=== PATIENT | female | born 1975 | race Two or more races ===

== ENCOUNTER 2024-11-18 14:08 | Emergency (ER) | payer MEDICAID ==
[~2024-11-18] VITALS: Ht 165.1 cm; Wt 77.0 kg
[2024-11-18 14:53] LABS: BASOPHILS % (AUTO) 0.4 % (0-1); EOSINOPHILS % (AUTO) 0.4 % (0-6); HEMATOCRIT 34.6 % (35.0-45.0); LYMPHOCYTES # (AUTO) 1.6 X10'3 (1.1-4.8); MEAN CORPUSCULAR HEMOGLOBIN 23.5 PG (27.0-31.0); MEAN CORPUSCULAR HGB CONC 31.8 g/dL (33.0-36.5); MEAN PLATELET VOLUME 7.4 FL (7.4-10.4); MONOCYTES % (AUTO) 7.9 % (2-12); NEUTROPHILS # (AUTO) 9.6 X10'3 (1.8-7.7); NEUTROPHILS % (AUTO) 78.3 % (42-75); PLATELET COUNT 310 X10'3 (140-440); RED BLOOD COUNT 4.67 X10'6 (4.20-5.60); RED CELL DISTRIBUTION WIDTH 17.7 % (11.5-14.5); WHITE BLOOD COUNT 12.3 X10'3 (4.5-11.0)
[2024-11-18 15:27] LABS: ALANINE AMINOTRANSFERASE 109 U/L (12-78); ALBUMIN 3.1 G/DL (3.4-5.0); ALBUMIN/GLOBULIN RATIO 0.9 (1.1-1.5); ALKALINE PHOSPHATASE 83 IU/L (46-116); ANION GAP 8 (8-16); ASPARTATE AMINO TRANSFERASE 204 U/L (10-37); BILIRUBIN,TOTAL 0.3 MG/DL (0.1-1.0); BLOOD UREA NITROGEN 9 MG/DL (7-18); BUN/CREATININE RATIO 11.4 (10.0-20.0); CALCIUM 8.4 MG/DL (8.5-10.1); CHLORIDE 104 MMOL/L (99-107); CREATININE 0.79 MG/DL (0.40-0.90); GLUCOSE 163 MG/DL (70-104); LIPASE 28 U/L (16-77); POTASSIUM 3.8 MMOL/L (3.5-5.1); SODIUM 138 MMOL/L (135-145); TOTAL CARBON DIOXIDE 25.9 MMOL/L (24-32); TOTAL PROTEIN 6.7 G/DL (6.4-8.2); eCRCL 79 ML/MIN; eGFR 78 ML/MIN
[2024-11-18] MEDS ORDERED: ketorolac trometh 30MG/ML vial 30 MG/ML VIAL IV ONE (18:35)
[2024-11-18] MEDS ORDERED: iohexol 300mg/ml 100ml inj. ONE (18:43)
[2024-11-18] MEDS: normal saline 1000ml 1,000 ML IV ONE (18:47)
[2024-11-18 18:48] LABS: BILIRUBIN,URINE NEGATIVE (Neg); CLARITY,URINE CLEAR (Clear); COLOR,URINE YELLOW (Yellow); GLUCOSE, URINE NEGATIVE (Neg); KETONES,URINE 15 mg/dl (Neg); LEUKOCYTE ESTERASE ,URINE SMALL (Neg); NITRITES, URINE NEGATIVE (Neg); OCCULT BLOOD,URINE NEGATIVE (Neg); PROTEIN,URINE NEGATIVE (Neg); URINE HCG NEGATIVE (NEG); UROBILINOGEN,URINE 0.2 E.U/dL (0.2-1.0)
[2024-11-18 18:53] LABS: UA COLLECTION TYPE CLN CATCH MIDSTREAM
[2024-11-18 18:54] LABS: BACTERIA,URINE 1+ /HPF (Neg); RBC,URINE 0-2 /HPF (0-2); SQUAMOUS EPITHELIAL CELL,UR MODERATE /LPF (FEW)
[2024-11-18] MEDS: ketorolac trometh 15mg/ml vial 15 MG/ML ML IV ONE (19:01)
[2024-11-18] MEDS: CefTRIAXone/D5W-Rocephin 1gm 50 ML IV ONE (22:47)
[2024-11-18] MEDS ORDERED: CIPR-546 PO (23:57)
[2024-11-18] MEDS ORDERED: ONDA-243 PO (23:58)
[2024-11-19 00:16] VITALS: BP 98/52; PULSE 78; RESP 16; TEMP 98.2; O2SAT 98
== END 2024-11-19 00:23 | disposition home or self-care (01) ==
LOC: ER 14:09
DX: N10 Acute pyelonephritis (principal); R11.2 Nausea with vomiting, unspecified; Z20.822 Contact with and (suspected) exposure to COVID-19
CPT/HCPCS: 36415; 71045; 74177; 76700; 80053; 80074; 81001; 81025; 83690; 85025; 87088; 87186; 87502; 87503; 87811; 96361; 96365; 96375; 99285; J0696; J1885; J7030; Q9967; 87077

== ENCOUNTER 2025-03-12 10:32 | Inpatient (IN) | payer OTHER ==
[2025-03-11 19:35] VITALS: BP 132/86; PULSE 80; RESP 14; TEMP 97.7; O2SAT 98
[~2025-03-12] VITALS: Ht 167.6 cm; Wt 66.0 kg
[~2025-03-12 10:32] MED LIST: ONDA-243 PO
--- NOTE | 2025-03-12 11:28 | RADIOLOGY REPORT ---
[facility] EXAM[facility]: DI HIREN RIBS WITH PA CHEST INDICATION: rib pain, worse on right COMPARISON: DI CHEST,SINGLE VIEW on DOS: 11/18/24 TECHNIQUE: Frontal view of the chest and multiple views of the bilateral ribs were performed. FINDINGS: No pneumothorax or pulmonary edema. There is mild left lung base atelectasis. The heart is not enlarg ed. No displaced fractures are identified about the bony thorax. There is fecal retention in the part ially visualized colon. IMPRESSION: 1. Mild left basilar atelectasis. The lungs are otherwise clear. 2. No evidence of rib fracture.
[2025-03-12] MEDS ORDERED: HYDROcodone/acetaminophen 5mg/325mg tablet PO STA (11:32)
[2025-03-12] MEDS: ketorolac trometh 30MG/ML vial 30 MG/ML VIAL IV ONE (11:45)
[2025-03-12] MEDS ORDERED: IBUP-1986 PO (12:59)
[2025-03-12] MEDS ORDERED: HYDR-3973 PO (12:59)
[2025-03-12] MEDS ORDERED: ACET-3174 PO (12:59)
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
[2025-03-12 14:00] LABS: MEAN PLATELET VOLUME 7.5 FL (7.4-10.4); RED CELL DISTRIBUTION WIDTH 17.7 % (11.5-14.5)
[2025-03-12 14:15] LABS: CREATININE 0.71 MG/DL (0.40-0.90); TOTAL CARBON DIOXIDE 24.7 MMOL/L (24-32); eCRCL 92 ML/MIN; eGFR 88 ML/MIN
[2025-03-12] MEDS ORDERED: iohexol 300mg/ml 100ml inj. ONE (14:22)
--- NOTE | 2025-03-12 15:07 | RADIOLOGY REPORT ---
Exam: CT CT ABDOMEN PELVIS W/ IV CONTRAST History: RUQ abd pain Comparison Study: CT CT ABDOMEN PELVIS W/ IV CONTRAST on DOS: 11/18/24, US ULTRASOUND OF ABDOMEN on DO S: 11/18/24 TECHNIQUE: A digital office supervisor image was obtained. During the uneventful, intravenous administration of c ontrast material, multislice data acquisition was obtained through the abdomen and pelvis. The data s et was subsequently reconstructed into axial images. Images were reviewed on a work station using a c ombination of axial and multiplanar using a variety of window levels and settings. Radiation Dose Information: CT Dose: CTDI volume is 25 mGy. Dose-length product is 250 mGy*cm FINDINGS: Lung Bases: No acute or significant lung base finding. Normal heart size. No pleural or pericardial effusion. Liver: The liver is normal in size. No focal lesions. Normal hepatic vascular enhancement. Gallbladder and Biliary Tree: Distended gallbladder. Spleen: Unremarkable Pancreas: The pancreas is normal in appearance without focal lesions or abnormal enhancement. Adrenal Glands: Unremarkable Kidneys: Moderate right hydroureteronephrosis. No obstructing calculi is noted. This appears similar to prior study dated 11/18/2024. Bladder: Distended bladder. Bowel: The stomach is grossly normal in appearance. Small bowel and colon are normal in caliber and d istribution. Appendix is unremarkable. Ascites: Absent Lymphadenopathy: No mesenteric, retroperitoneal or periportal lymphadenopathy. Abdominal Wall and Mesentery: Unremarkable. Vasculature: The visualized abdominal aorta is normal in size and caliber. Abdominal and pelvic vess els demonstrate normal enhancement. Pelvic Organs: Unremarkable Musculoskeletal: No aggressive focal bony lesions, acute fractures or dislocation. Soft tissues: Unremarkable. IMPRESSION: Moderate right hydroureteronephrosis. No obstructing calculi is noted. This appears similar to prior study dated 11/18/2024. Distended bladder. Distended gallbladder. Right upper quadrant ultrasound is recommended. All CT scans at this medical facility are performed using dose modulation techniques as appropriate t o a performed exam including the following: Automated exposure control was utilized; adjustment of th e MA and/or KV according to patient size; and use of iterative reconstruction technique.
--- NOTE | 2025-03-12 16:05 | RADIOLOGY REPORT ---
CLINICAL HISTORY: distended GB. and RUQ abd pain. TECHNIQUE: Transabdominal sonogram was performed of the right upper quadrant. COMPARISON: CT CT ABDOMEN PELVIS W/ IV CONTRAST on DOS: 03/12/25, CT CT ABDOMEN PELVIS W/ IV CONTRAST on DOS: 11/18/24, US ULTRASOUND OF ABDOMEN on DOS: 11/18/24 FINDINGS: The liver is heterogeneous in echogenicity. There is a 1.3 cm cyst. No intrahepatic biliary ductal d ilatation is present. The liver measures 15 cm. The gallbladder is normal with no evidence for stones or wall thickening. The common bile duct is normal in caliber, measuring 3 mm. The pancreas is not seen. The right kidney is normal in echogenicity and measures 9.8 cm in length. There is no evidence for hy dronephrosis or calculi. IMPRESSION: NO SIGNIFICANT SONOGRAPHIC ABNORMALITY OF THE IMAGED RIGHT UPPER QUADRANT.
[2025-03-12] MEDS ORDERED: magnesium sulf-water 4G/100mL 100 ML IV PRN (17:15)
[2025-03-12] MEDS ORDERED: HYDROmorphone inj. 0.5 MG/0.5 ML DISP.SYRIN IV PRN (17:15)
[2025-03-12] MEDS ORDERED: mag hydrox/Alum hydrox/simeth 30ml oral suspension PO PRN (17:15)
[2025-03-12] MEDS ORDERED: magnesium sulf-water 2g/50mL 50 ML IV PRN (17:15)
[2025-03-12] MEDS ORDERED: potassium Cl 20 mEq SR tablet PO PRN ×2 (17:15)
[2025-03-12] MEDS ORDERED: HYDROcodone/acetaminophen 5mg/325mg tablet PO PRN (17:15)
[2025-03-12] MEDS ORDERED: potassium Cl 40MEQ/1/2NS 520ml 520 ML IV PRN (17:15)
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
[2025-03-12] MEDS: K and/or MAG REPLACEMENT MC SCH (20:00)
[2025-03-12] MEDS: normal saline 1000ml 1,000 ML IV SCH (20:00)
[2025-03-12] MEDS: ondansetron/PF 4mg/2ml inj IV PRN (20:08)
[2025-03-12] MEDS: docusate sod 100mg capsule PO SCH (21:20)
[2025-03-12 22:00] VITALS: BP 102/65; PULSE 62; RESP 13; TEMP 96.9; O2SAT 96
[2025-03-13 04:36] LABS: MEAN PLATELET VOLUME 7.2 FL (7.4-10.4); RED CELL DISTRIBUTION WIDTH 18.2 % (11.5-14.5)
[2025-03-13 04:54] LABS: CREATININE 0.87 MG/DL (0.40-0.90); TOTAL CARBON DIOXIDE 26.8 MMOL/L (24-32); eCRCL 75 ML/MIN; eGFR 70 ML/MIN
[2025-03-13 06:00] VITALS: BP 109/61; PULSE 57; RESP 12; TEMP 96.8; O2SAT 95
[2025-03-13] MEDS: HYDROcodone/acetaminophen 10/325mg tab PO PRN (08:52)
[2025-03-13 10:00] VITALS: BP 111/63; PULSE 64; RESP 19; TEMP 97.6; O2SAT 98
--- NOTE | 2025-03-13 11:19 | RADIOLOGY REPORT ---
Procedure: CT CT CHEST Reason for study/Clinical History: right chest pain, rib pain Comparison Study: None TECHNIQUE: Multidetector CT of the chest was performed from the lung apices to the upper abdomen with out the use of intravenous contract. Axial, coronal and sagittal multiplanar reformats were performed . Radiation Dose Information: CT Dose: CTDI volume is 15 mGy. Dose-length product is 440.8 mGy*cm The dose indicators for CT are the volume Computed Tomography (CT) Dose Index (CTDIvol) and the Dose Length Product (DLP), and are measured in units of mGy and mGy-cm, respectively. These indicators are not patient dose, but values generated from the CT scanner acquisition factors. The report includes radiation exposure data for exposures received during this examination. FINDINGS: Lower neck: Unremarkable. Lungs: Dependent subsegmental atelectasis. Heart/Vascular Structures: Normal heart size. No pericardial effusion. Lymph Nodes: No adenopathy Pleura: No pleural effusion or significant pneumothorax. Musculoskeletal: Mildly displaced fractures of the right anterolateral 9th, 8th and 7th ribs. Soft tissues: Normal. Upper abdomen: Limited portions of the upper abdomen are unremarkable. IMPRESSION: Mildly displaced fractures of the right anterolateral 9th, 8th and 7th ribs.
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
[2025-03-13 13:34] LABS: % IRON SATURATION 7 % (11-46)
[2025-03-13 18:00] VITALS: BP 122/60; PULSE 71; RESP 17; TEMP 97; O2SAT 95
[2025-03-13] MEDS: magnesium hydroxide 30ml (MOM) UD suspension PO PRN (19:23)
[2025-03-13 22:00] VITALS: BP 108/60; PULSE 63; RESP 14; TEMP 98.1; O2SAT 93
[2025-03-13 23:17] LABS: LEUKOCYTE ESTERASE ,URINE SMALL (Neg); NITRITES, URINE NEGATIVE (Neg); OCCULT BLOOD,URINE TRACE-INTACT (Neg); UA COLLECTION TYPE NON-SPECIFIED
[2025-03-13 23:25] LABS: SQUAMOUS EPITHELIAL CELL,UR FEW /LPF (FEW)
[2025-03-13 23:36] LABS: URINE AMPHETAMINE SCREEN NEGATIVE (Neg); URINE BARBITUATE SCREEN NEGATIVE (Neg); URINE BENZODIAZEPINES SCREEN NEGATIVE (Neg); URINE CANNABINOID SCREEN NEGATIVE (Neg); URINE COCAINE SCREEN NEGATIVE (Neg); URINE METHADONE SCREEN NEGATIVE (Neg); URINE OPIATE SCREEN POSITIVE (Neg); URINE PHENCYCLIDINE SCREEN NEGATIVE (Neg)
[2025-03-14 04:56] LABS: MEAN PLATELET VOLUME 7.2 FL (7.4-10.4); RED CELL DISTRIBUTION WIDTH 17.9 % (11.5-14.5)
[2025-03-14 05:13] LABS: CREATININE 0.70 MG/DL (0.40-0.90); TOTAL CARBON DIOXIDE 28.6 MMOL/L (24-32); eCRCL 93 ML/MIN; eGFR 90 ML/MIN
[2025-03-14 06:00] VITALS: BP 104/60; PULSE 67; RESP 17; TEMP 98.1; O2SAT 95
[2025-03-14] MEDS ORDERED: mineral oil 133ml enema RC PRN (08:15)
[2025-03-14 10:00] VITALS: BP 107/67; PULSE 70; RESP 17; TEMP 98; O2SAT 95
--- NOTE | 2025-03-14 11:46 | PROGRESS NOTE ---
Daily Progress Note Providers to CC ~ Antibiotic Timeout Antibiotic Ordered?: No Subjective No acute events overnight. Patient examined at bedside. No new complaints. Patient denies chest pain, sob, palpitations, abdominal pain, n/v/d. Vss, labs unremarkable. CT revealed mildly displaced fractures of the right anterolateral 9th, 8th and 7th ribs. Continue PT. Objective Vital Signs Date Time Temp Pulse Resp B/P (MAP) Pulse Ox O2 Delivery O2 Flow Rate FiO2 03/14/25 10:37 16 03/14/25 08:00 Room Air 0.0 03/13/25 22:00 98.1 63 108/60 (81) 93 Result Diagram: 03/14/2542903/14/25429 Physical Exam General: Generalized weakness, A&Ox 3, NAD HEENT: Normocephalic, PERRLA Neck: Supple, trachea midline, no JVD Chest: Clear to auscultation bilaterally Cardiovascular: RRR, S1&S2 GI: Soft and nontender Extremities: No cyanosis/clubbing/or edema DIGITAL CONTENT MARKETING MANAGER: CN II-XII intact, no focal deficits Musculoskeletal: Severe tenderness of right lateral chest with palpation Skin: Bruises over lateral right chest Problem\Assessment\Plan Problems/Diagnosis: (1) Rib pain Assessment & Plan Rib fracture, right Mechanical fall Anemia, microcytic Fe-deficiency anemia -CT reveals mildly displaced fractures of the right anterolateral 9th, 8th and 7th ribs -continue supportive care, continue PT DVT/VTE prophylaxis Code Status: Full Code Date of Service: Mar 14, 2025 Billing Provider: RENETTA HELLER Common Visit Codes: [id number] INP/OBS CARE(HIGH) RENETTA HELLER Mar 14, 2025 11:46
[2025-03-14 18:00] VITALS: BP 125/63; PULSE 75; RESP 18; TEMP 98.2; O2SAT 93
[2025-03-14 20:00] VITALS: RESP 18; O2SAT 94
[2025-03-14 22:00] VITALS: BP 114/69; PULSE 61; RESP 16; TEMP 98.3; O2SAT 94
[2025-03-15 04:53] LABS: MEAN PLATELET VOLUME 7.2 FL (7.4-10.4); RED CELL DISTRIBUTION WIDTH 17.7 % (11.5-14.5)
[2025-03-15 05:08] LABS: CREATININE 0.67 MG/DL (0.40-0.90); TOTAL CARBON DIOXIDE 31.2 MMOL/L (24-32); eCRCL 97 ML/MIN; eGFR > 90 ML/MIN
[2025-03-15 06:00] VITALS: BP 107/77; PULSE 71; RESP 20; TEMP 98.8; O2SAT 96
[2025-03-15 08:08] VITALS: RESP 20; O2SAT 96
[2025-03-15 10:00] VITALS: BP 107/61; PULSE 62; RESP 18; TEMP 97.9; O2SAT 97
[2025-03-15] MEDS ORDERED: SENN-267 PO (12:28)
[2025-03-15] MEDS ORDERED: HYDR-3972 PO (12:28)
[2025-03-15] MEDS ORDERED: FER325T PO (12:28)
[2025-03-15] MEDS: CefTRIAXone/D5W-Rocephin 1gm 50 ML IV ONE (12:28)
[2025-03-15] MEDS ORDERED: ASPI81TA52 PO (12:28)
[2025-03-15] MEDS ORDERED: PANT40TA54 PO (12:28)
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
[2025-03-15] MEDS ORDERED: SULF1TAB49 PO (16:36)
[2025-03-16] MEDS ORDERED: CefTRIAXone/D5W-Rocephin 1gm 50 ML IV SCH (08:00)
== END 2025-03-15 15:15 | disposition home or self-care (01) | DRG 144 ==
LOC: ER 10:33 → OBSVTOIN 17:24 → ED HOLD 17:24 → SUR 3N 19:52
PROVIDERS: ADMIT Family Medicine; ATTEND Family Medicine
PROC: BW211ZZ Computerized Tomography (CT Scan) of Abdomen and Pelvis using Low Osmolar Contrast (ICD-10-PCS; principal; 2025-03-12)
DX: S22.31XA Fracture of one rib, right side, initial encounter for closed fracture (principal); D50.9 Iron deficiency anemia, unspecified; N39.0 Urinary tract infection, site not specified; W18.39XA Other fall on same level, initial encounter; Z88.0 Allergy status to penicillin; Y93.89 Activity, other specified; Y92.89 Other specified places as the place of occurrence of the external cause; Y99.8 Other external cause status; Z87.891 Personal history of nicotine dependence
CPT/HCPCS: 36415; 71111; 71250; 74177; 76700; 80053; 80305; 81001; 82728; 83540; 83550; 83690; 83735; 85025; 87077; 87081; 87088; 87186; 96374; 97110; 97116; 97161; 97530; 99285; G0378; J0696; J1171; J1885; J2405; J7030; Q0163; Q9967